=== PATIENT | male | born 1960 | race Two or more races ===

== ENCOUNTER 2016-12-25 10:41 | Emergency (ER) | payer MEDICAID ==
[~2016-12-25] VITALS: Ht 170.2 cm; Wt 68.0 kg
[2016-12-25] MEDS ORDERED: Dicyclomine HCl 10mg/5ml oral soln ORAL ONE (11:30)
[2016-12-25] MEDS ORDERED: Lidocaine 2% Visc 15ml soln ORAL ONE (11:30)
[2016-12-25] MEDS ORDERED: Mylanta II UD 30ml ORAL ONE (11:30)
[2016-12-25 11:57] VITALS: BP 112/74
[2016-12-25 12:11] VITALS: BP 120/72
[2016-12-25] MEDS ORDERED: CIPROFLOXACIN500 M2 ORAL (12:12)
[2016-12-25] MEDS ORDERED: RANITIDINE HCL150 MG ORAL (12:12)
[2016-12-25] MEDS ORDERED: ZOFRAN ODT4 MG ORAL (12:12)
[2016-12-25] MEDS ORDERED: BENTYL10 MG ORAL (12:12)
--- NOTE | 2016-12-25 13:52 | Emergency Room Report ---
History of Present Illness General Chief Complaint: Diarrhea Source: Patient Present Illness HPI 56-year-old male presents ED complaining of abdominal pain with diarrhea for the last 8 days. Patient describes pain as cramping, 4/10, nonradiating. Notes multiple episodes of diarrhea. Denies recent antibiotic use. Denies sick contacts or recent travel. is also here with similar presentation. No other aggravating relieving factors. Denies any other associated symptoms Allergies: Coded Allergies: No Known Allergies (Unverified , 12/25/16) Patient History Past Medical History: none Past Surgical History: none Pertinent Family History: none Social History: Denies: smoking, alcohol use, drug use Immunizations: UTD Reviewed Nursing Documentation: PMH: Agreed, PSxH: Agreed Nursing Documentation-PMH Past Medical History: No Stated History Review of Systems All Other Systems: negative except mentioned in HPI Physical Exam Vital Signs Date Time Temp Pulse Resp B/P (MAP) Pulse Ox O2 Delivery O2 Flow Rate FiO2 12/25/16 10:49 98.2 79 15 112/74 99 Room Air Sp02 EP Interpretation: reviewed, normal General Appearance: no apparent distress, alert, GCS 15, non-toxic Head: normocephalic, atraumatic Eyes: bilateral eye normal inspection, bilateral eye PERRL ENT: hearing grossly normal, normal pharynx, no angioedema, normal voice Neck: full range of motion, supple/symm/no masses Respiratory: chest non-tender, lungs clear, normal breath sounds, speaking full sentences Cardiovascular #1: regular rate, rhythm, no edema Cardiovascular #2: 2+ carotid (R), 2+ carotid (L), 2+ radial (R), 2+ radial (L) , 2+ dorsalis pedis (R), 2+ dorsalis pedis (L) Gastrointestinal: normal bowel sounds, non tender, soft, non-distended, no guarding, no rebound Rectal: deferred Genitourinary: normal inspection, no CVA tenderness Musculoskeletal: back normal, gait/station normal, normal range of motion, non- tender Neurologic: alert, oriented x3, responsive, motor strength/tone normal, sensory intact, speech normal Psychiatric: judgement/insight normal, memory normal, mood/affect normal, no suicidal/homicidal ideation Reflexes: 3+ bicep (R), 3+ bicep (L), 3+ tricep (R), 3+ tricep (L), 3+ knee (R) , 3+ knee (L) Skin: normal color, no rash, warm/dry, well hydrated Lymphatic: no adenopathy Medical Decision Making Diagnostic Impression: Primary Impression: Gastroenteritis ER Course Hospital Course 56-year-old M presents to ED with cramping abdominal pain with diarrhea differential diagnosis: gastritis, SBO, cholecystits, gastroenteritis Clinical course Patient placed on stretcher. Initial history, physical exam reveals a middle- age male in no acute distress. Exam unremarkable. Patient appears comfortable I did not see the reason for workup or imaging at this time. Given that has similar presentation likely simple gastroenteritis. Patient will be discharged with medications, antibiotics given the prolonged course given PO zantac, GI cocktail I feel this is a highly complex case requiring extensive working including EKG/ Rhythm strip, Xray/CT/US, Blood/urine lab work, repeat exams while in ED, and administration of strong opiates/narcotics for pain control, admission to hospital or close patient follow up. Diagnosis - gastroenteritis Stable and discharged to home with prescriptions for Zantac, Bentyl, Cipro, zofran. Followup with PMD. Return to ED if symptoms recur or worsen Last Vital Signs Date Time Temp Pulse Resp B/P (MAP) Pulse Ox O2 Delivery O2 Flow Rate FiO2 12/25/16 12:11 98.2 15 120/72 99 Room Air 12/25/16 10:49 79 Status: improved Disposition: HOME, SELF-CARE Condition: Stable Scripts Ranitidine Hcl* (ZANTAC*) 150 Mg Tablet 150 MG ORAL TWICE A DAY, #30 TAB Prov: MICHI EVANGELISTA M.D. 12/25/16 Ondansetron Odt* (ZOFRAN ODT*) 4 Mg Tab.rapdis 4 MG ORAL Q6H Y for Nausea & Vomiting, #30 TAB 0 Refills Prov: MICHI EVANGELISTA M.D. 12/25/16 Dicyclomine Hcl* (BENTYL*) 10 Mg Capsule 10 MG ORAL FOUR TIMES A DAY, #20 CAP Prov: MICHI EVANGELISTA M.D. 12/25/16 Ciprofloxacin Hcl* (CIPROFLOXACIN HCL*) 500 Mg Tablet 500 MG ORAL Q12H, #14 TAB 0 Refills Prov: MICHI EVANGELISTA M.D. 12/25/16 Patient Instructions: Viral Gastroenteritis, Adult MICHI EVANGELISTA M.D. Dec 25, 2016 13:52
== END 2016-12-25 12:30 | disposition home or self-care (01) ==
LOC: EMR 11:34
DX: K52.9 Noninfective gastroenteritis and colitis, unspecified (principal)
CPT/HCPCS: 99284